=== PATIENT | female | born 1935 | race Caucasian/White ===

== ENCOUNTER 2019-02-05 18:38 | Inpatient (IN) | payer MEDICARE, OTHER ==
[2019-02-05] MEDS ORDERED: Sodium Chloride 0.9% 1,000 ML IV ONE (19:08)
[2019-02-05 19:20] LABS: BASO % 0.6 % (0.0-2.0); EOS # 0.5 K/uL (0.0-0.7); EOS % 7.2 % (0.0-4.0); HEMOGLOBIN 11.9 g/dL (11.0-16.0); LYMPH # 2.5 K/uL (1.0-4.3); LYMPH % 35.9 % (20.0-40.0); MEAN CELL VOLUME 101.9 fL (81.0-99.0); MEAN CORPUSCULAR HEMOGLOBIN 34.1 pg (27.0-31.0); MEAN CORPUSCULAR HGB CONC 33.5 g/dL (33.0-37.0); MONO # 0.5 K/uL (0.0-0.8); MONO % 7.7 % (0.0-10.0); NEUT # 3.4 K/uL (1.8-7.0); NEUT % 48.6 % (50.0-75.0); RBC 3.49 Mil/uL (3.80-5.20); RED CELL DISTRIBUTION WIDTH 13.2 % (11.5-14.5)
[2019-02-05 19:34] LABS: CALCIUM 11.2 mg/dl (8.6-10.4)
[2019-02-05 19:44] LABS: ALB/GLOB RATIO 1.6 (1.0-2.1); ALBUMIN 4.1 g/dL (3.5-5.0)
--- NOTE | 2019-02-05 19:50 | C.PDOC ---
History Of Present Illness 83 y/o female pt presents to the ER c/o diarrhea x2 days. Pt reports she has had approximately x5 episodes of watery stool per day. She denies recent travels, recent intake of abx, no blood in stool or abdominal pain. Time Seen by Provider: 02/05/19 19:05 Chief Complaint (Nursing): GI Problem History Per: Patient History/Exam Limitations: no limitations Onset/Duration Of Symptoms: Days (x14) Current Symptoms Are (Timing): Still Present Past Medical History Reviewed: Historical Data, Nursing Documentation, Vital Signs Vital Signs: Last Vital Signs Temp 97.5 F L 02/05/19 18:43 Pulse 78 02/05/19 18:43 Resp 18 02/05/19 18:43 BP 198/78 H 02/05/19 18:43 Pulse Ox 99 02/05/19 18:43 - Medical History PMH: Dementia, HTN Family History: States: No Known Family Hx - Social History Hx Tobacco Use: No Hx Alcohol Use: No Hx Substance Use: No - Immunization History Hx Tetanus Toxoid Vaccination: No Hx Influenza Vaccination: No Hx Pneumococcal Vaccination: No Review Of Systems Except As Marked, All Systems Reviewed And Found Negative. Gastrointestinal: Positive for: Diarrhea Physical Exam - Physical Exam Appears: Non-toxic, No Acute Distress Skin: Normal Color, Warm, Dry Head: Atraumatic, Normacephalic Eye(s): bilateral: Normal Inspection, PERRL, EOMI Nose: Normal Oral Mucosa: Moist Chest: Symmetrical Cardiovascular: Rhythm Regular, No Murmur Respiratory: Normal Breath Sounds, No Rales, No Rhonchi, No Wheezing Gastrointestinal/Abdominal: Normal Exam, Soft, No Tenderness Extremity: Normal ROM Extremity: Bilateral: Atraumatic, Normal Color And Temperature Neurological/Psych: Oriented x3, Normal Speech ED Course And Treatment - Laboratory Results Result Diagrams: 02/05/19 19:13 02/05/19 19:13 Lab Results: Total Bilirubin 0.7 mg/dL (0.2-1.3) 02/05/19 19:13 AST 34 U/L (14-36) 02/05/19 19:13 ALT 15 U/L (9-52) 02/05/19 19:13 Alkaline Phosphatase 57 U/L (38-126) 02/05/19 19:13 Total Protein 6.7 g/dL (6.3-8.3) 02/05/19 19:13 Albumin 4.1 g/dL (3.5-5.0) 02/05/19 19:13 Globulin 2.6 gm/dL (2.2-3.9) 02/05/19 19:13 Albumin/Globulin Ratio 1.6 (1.0-2.1) 02/05/19 19:13 Lipase 1857 U/L (23-300) H 02/05/19 19:13 O2 Sat by Pulse Oximetry: 99 (RA) Pulse Ox Interpretation: Normal Medical Decision Making Medical Decision Making: Assessment: diarrhea plans: -- chem labs -- blood work -- stool cx -- obstructive series XR -- Iv fluids case discussed with Dr. Elliott and will admit to medical surgical floor Disposition Discussed With : Santhosh Elliott Counseled Patient/Family Regarding: Studies Performed, Diagnosis - Disposition Disposition: HOSPITALIZED Disposition Time: 20:50 Condition: FAIR - Clinical Impression Clinical Impression: Pancreatitis - Scribe Statement The provider has reviewed the documentation as recorded by the Yaneli Arreola Do Provider Attestation: All medical record entries made by the Nitinibe were at my direction and personally dictated by me. I have reviewed the chart and agree that the record accurately reflects my personal performance of the history, physical exam, medical decision making, and the department course for this patient. I have also personally directed, reviewed, and agree with the discharge instructions and disposition.
[2019-02-05] MEDS ORDERED: Iohexol 350mg/ml 100 ML ONE (21:03)
[2019-02-05 23:03] LABS: SQUAMOUS EPITHIAL < 1 /hpf (0-5); URINE BACTERIA RARE (<OCC); URINE BILIRUBIN NEGATIVE (NEGATIVE); URINE BLOOD NEGATIVE (NEGATIVE); URINE CLARITY Clear (Clear); URINE COLOR Straw (YELLOW); URINE GLUCOSE (UA) NORMAL (Normal); URINE LEUKOCYTE ESTERASE 2+ Leu/uL (Negative); URINE PROTEIN NEGATIVE (NEGATIVE); URINE UROBILINOGEN NORMAL mg/dL (0.2-1.0)
[2019-02-06] MEDS ORDERED: Sodium Chloride 0.9% 1,000 ML IV ONE (09:13)
[2019-02-06] MEDS ORDERED: Dextrose 5%/0.45% NS 1,000 ML IV SCH (09:30)
--- NOTE | 2019-02-06 10:12 | CT ---
Date of service: 02/05/2019 PROCEDURE: CT Abdomen and Pelvis with contrast HISTORY: abd. pain COMPARISON: None. TECHNIQUE: Contrast dose: 100 mL of Omnipaque 350 intravenously. Axial and reformatted coronal and sagittal CT images of the abdomen and pelvis were obtained after IV contrast administration. Radiation dose: Total exam DLP = 385.85 mGy-cm. This CT exam was performed using one or more of the following dose reduction techniques: Automated exposure control, adjustment of the mA and/or kV according to patient size, and/or use of iterative reconstruction technique. FINDINGS: LOWER THORAX: There is a trace right pleural effusion. The heart is enlarged. Mild pulmonary vascular congestion is noted. LIVER: Clhpvo-ep-jzkaogefcj enlarged liver noted. Low-attenuation lesion noted at the anterior aspect of the liver measures 7 millimeter likely benign. GALLBLADDER AND BILE DUCTS: Large gallstones are noted. No definite CT evidence of acute cholecystitis. The common bile duct is slightly dilated. PANCREAS: Unremarkable. No gross lesion or ductal dilatation. SPLEEN: Unremarkable. ADRENALS: There is 0.8 centimeter nodule at the left adrenal gland. The right adrenal gland is grossly unremarkable. KIDNEYS AND URETERS: Mild thickening in the right kidney collecting system is noted. Correlate clinically for UTI. The kidneys enhance symmetrically. No evidence of significant hydronephrosis. VASCULATURE: No aortic aneurysm. Diffuse atherosclerotic calcification is noted in the abdominal aorta and iliac arteries. BOWEL: There is diffuse gastric and small bowel wall thickening suspicious for gastroenteritis. Colonic diverticulosis are noted. No obstruction. No gross mural thickening. APPENDIX: No CT evidence of appendicitis. PERITONEUM: Unremarkable. No free fluid. No free air. LYMPH NODES: Unremarkable. No enlarged lymph nodes. BLADDER: Mild urinary bladder wall thickening is noted. REPRODUCTIVE: Unremarkable. BONES: No acute fracture. Grade 1 anterior spondylolisthesis of L4 on L5 and L5 relative to S1 is noted. Moderate degenerative changes are noted. OTHER FINDINGS: None. IMPRESSION: Suspicious for gastroenteritis. Mild thickening of the right kidney collecting system noted. Correlate clinically for UTI. Large gallstones without CT evidence of acute cholecystitis. Preliminary report was submitted by [facility] Radiology contains concordant findings.
[2019-02-06 12:01] LABS: BASO % 0.7 % (0.0-2.0); EOS # 0.5 K/uL (0.0-0.7); EOS % 8.7 % (0.0-4.0); HEMOGLOBIN 12.3 g/dL (11.0-16.0); LYMPH # 2.4 K/uL (1.0-4.3); LYMPH % 41.2 % (20.0-40.0); MEAN CELL VOLUME 100.5 fL (81.0-99.0); MEAN CORPUSCULAR HEMOGLOBIN 34.2 pg (27.0-31.0); MEAN PLATELET VOLUME 9.5 fL (7.2-11.7); MONO # 0.5 K/uL (0.0-0.8); MONO % 8.8 % (0.0-10.0); NEUT # 2.4 K/uL (1.8-7.0); NEUT % 40.6 % (50.0-75.0); NRBC % 0.1 % (0.0-2.0); RBC 3.6 Mil/uL (3.80-5.20); RED CELL DISTRIBUTION WIDTH 13.1 % (11.5-14.5); WHITE BLOOD COUNT 5.9 K/uL (4.8-10.8)
--- NOTE | 2019-02-06 12:06 | RAD ---
Date of service: 02/05/2019 PROCEDURE: Radiographs of the chest and abdomen (obstructive series) HISTORY: abd pain COMPARISON: No prior. TECHNIQUE: AP radiograph of the chest, with upright and supine radiographs of the abdomen. 3 views obtained. FINDINGS: CHEST: Lungs: No evidence of acute pulmonary disease Cardiovascular: Normal size heart. No pulmonary vascular congestion. No aortic atherosclerotic calcification present Pleura: No pleural fluid. No pneumothorax. Other findings: None. ABDOMEN AND PELVIS: Bowel: Mild constipation, otherwise unremarkable bowel gas pattern. No evidence of mechanical obstruction. Free air: None. Bones: Unremarkable. Other findings: There is a vascular stent in the left upper pelvis. IMPRESSION: Mild constipation, otherwise radiographs of chest and abdomen. No evidence of mechanical bowel obstruction.
[2019-02-06 12:21] LABS: ALB/GLOB RATIO 1.6 (1.0-2.1); ALBUMIN 4.1 g/dL (3.5-5.0); ALT/SGPT 12 U/L (9-52); AMYLASE 110 U/L (30-110); AST/SGOT 24 U/L (14-36); BLOOD UREA NITROGEN 14 mg/dL (7-17); CALCIUM 11.3 mg/dl (8.6-10.4); GFR NON-AFRICAN AMERICAN > 60; LIPASE 173 U/L (23-300)
[2019-02-07 08:52] LABS: BASO % 0.6 % (0.0-2.0); EOS # 0.5 K/uL (0.0-0.7); HEMOGLOBIN 13.4 g/dL (11.0-16.0); LYMPH # 2.4 K/uL (1.0-4.3); LYMPH % 34.3 % (20.0-40.0); MEAN CELL VOLUME 102.2 fL (81.0-99.0); MEAN CORPUSCULAR HEMOGLOBIN 34.6 pg (27.0-31.0); MEAN CORPUSCULAR HGB CONC 33.8 g/dL (33.0-37.0); MEAN PLATELET VOLUME 9.8 fL (7.2-11.7); MONO # 0.7 K/uL (0.0-0.8); MONO % 10.2 % (0.0-10.0); NEUT # 3.3 K/uL (1.8-7.0); NEUT % 47.9 % (50.0-75.0); NRBC % 0.1 % (0.0-2.0); RBC 3.86 Mil/uL (3.80-5.20); RED CELL DISTRIBUTION WIDTH 13.1 % (11.5-14.5)
[2019-02-07 09:18] LABS: ALB/GLOB RATIO 1.6 (1.0-2.1); ALBUMIN 4.1 g/dL (3.5-5.0); ALT/SGPT < 6 U/L (9-52); AST/SGOT 53 U/L (14-36); BLOOD UREA NITROGEN 13 mg/dL (7-17); GFR NON-AFRICAN AMERICAN 48
[2019-02-07] MEDS: metroNIDAZOLE IV 500 mg/100 ml 500 MG/100 ML BAG IVPB SCH ×2 (09:39→15:42)
--- NOTE | 2019-02-07 10:20 | PN ---
DATE: 02/06/2019 LOCATION: 358, bed B. SUBJECTIVE: This is an 83-year-old female seen and examined in rounds initially for GI consultation on 02/06/2019 as requested by the admitting medical staff in the presence of some family members, reexamined again today with complaint of abdominal pain, mild abdominal distention with diarrhea, but no reported chills or fever, chest pain or palpitations, significant shortness of breath, somewhat tolerated liquid diet with loss of appetite and the reported weight loss by the family before. The entire chart is reviewed including but not limited to most recent lab and radiology study results, current and the previous medication list and today's lab result showed blood glucose level of 105. Rest of the lab results still pending. The official report of abdomen and pelvic CAT scan is seen. PHYSICAL EXAMINATION: GENERAL: An 83-year-old female. VITAL SIGNS: Afebrile with pulse of 74, respiratory rate 20 to 22, blood pressure 162/78. HEENT: Showed pale dry oral mucous membrane. Nonicteric sclerae. LUNGS: Few scattered crepitation. Decreased air entry at bases. HEART: Positive S1 and S2. ABDOMEN: Soft with mild distention, mild generalized tenderness. No mass or organomegaly. No rebound tenderness or guarding but generalized abdominal tenderness. RECTAL: The patient refused. EXTREMITIES: Without significant clubbing, cyanosis or edema. NEUROLOGIC: No reported new neurological deficits, sensory or motor and no reported new focal deficits. IMPRESSION: 1. Diarrhea of unclear etiology, infectious versus mechanical. 2. Known history of hypertension. 3. Recent alteration of the blood glucose level, of unclear etiology. 4. Rule out occult lower gastrointestinal tract malignancy. It has to be kept in mind that it is not clear if the patient had any recent colonoscopy or not and if she did, how long, despite family denied her having colonoscopy recently. SUGGESTIONS: 1. Agree with your plan. 2. Add Flagyl IV. 3. Cancer markers. 4. No milk or dairy product and no seeds in the meantime. 5. Rehydration. 6. Repeat CBC and SMA-18. We will add lipase and amylase level. 7. Endoscopic evaluation of the lower GI tract if the patient's symptoms persists, otherwise close observation to follow. Oren Escoto MD [facility] # [id number]
[2019-02-07 11:32] LABS: INR 1.1; PROTHROMBIN TIME 11.6 SECONDS (9.7-12.2)
[2019-02-07] MEDS ORDERED: Folic Acid 1 MG, Thiamine 100 MG, Multivitamin (MVI) 10 ML in Dextrose 5% In Water 1,00... IV SCH (23:15)
--- NOTE | 2019-02-07 23:24 | CP.PCM.HP ---
Present on Admission - Present on Admission Any Indicators Present on Admission: No Past Patient History - Past Medical History & Family History Past Medical History?: Yes - Past Social History Smoking Status: Never Smoked - CARDIAC Hx Hypercholesterolemia: Yes Hx Hypertension: Yes - NEUROLOGICAL Hx Dementia: Yes - ENDOCRINE/METABOLIC Hx Diabetes Mellitus Type 2: Yes - MUSCULOSKELETAL/RHEUMATOLOGICAL Hx Arthritis: Yes - PSYCHIATRIC Hx Depression: Yes Hx Substance Use: No - SURGICAL HISTORY Hx Cardiac Catheterization: Yes - ANESTHESIA Hx Anesthesia: Yes Hx Anesthesia Reactions: No Hx Malignant Hyperthermia: No Has any member of the family had a problem w/ anesthesia?: No Meds Allergies/Adverse Reactions: Allergies Allergy/AdvReac Type Severity Reaction Status Date / Time No Known Allergies Allergy Verified 02/05/19 18:44 Results - Vital Signs Recent Vital Signs: Last Vital Signs Temp 97.4 F L 02/07/19 15:11 Pulse 77 02/07/19 15:11 Resp 20 02/07/19 15:11 BP 154/73 H 02/07/19 15:11 Pulse Ox 96 02/07/19 15:11 - Labs Result Diagrams: 02/07/19 08:15 02/07/19 08:15 Labs: Laboratory Results - last 24 hr 02/07/19 02/07/19 02/07/19 07:26 08:15 08:15 WBC 7.0 RBC 3.86 Hgb 13.4 Hct 39.5 MCV 102.2 H MCH 34.6 H MCHC 33.8 RDW 13.1 Plt Count 198 MPV 9.8 Neut % (Auto) 47.9 L Lymph % (Auto) 34.3 [place] % (Auto) 10.2 H Eos % (Auto) 7.0 H Baso % (Auto) 0.6 Neut # (Auto) 3.3 Lymph # (Auto) 2.4 [place] # (Auto) 0.7 Eos # (Auto) 0.5 Baso # (Auto) 0.0 PT INR APTT Sodium 137 Potassium 4.9 Chloride 109 H Carbon Dioxide 20 L Anion Gap 14 BUN 13 Creatinine 1.1 Est GFR ( Amer) 58 Est GFR (Non-Af Amer) 48 POC Glucose (mg/dL) 105 Random Glucose 86 Calcium 11.0 H Total Bilirubin 1.1 AST 53 H D ALT < 6 L D Alkaline Phosphatase 67 Total Protein 6.7 Albumin 4.1 Globulin 2.6 Albumin/Globulin Ratio 1.6 Carcinoembryonic Ag CA 125 Antigen 02/07/19 02/07/19 02/07/19 10:50 10:50 11:07 WBC RBC Hgb Hct MCV MCH MCHC RDW Plt Count MPV Neut % (Auto) Lymph % (Auto) [place] % (Auto) Eos % (Auto) Baso % (Auto) Neut # (Auto) Lymph # (Auto) [place] # (Auto) Eos # (Auto) Baso # (Auto) PT 11.6 INR 1.1 APTT 38 H Sodium Potassium Chloride Carbon Dioxide Anion Gap BUN Creatinine Est GFR ( Amer) Est GFR (Non-Af Amer) POC Glucose (mg/dL) 144 H Random Glucose Calcium Total Bilirubin AST ALT Alkaline Phosphatase Total Protein Albumin Globulin Albumin/Globulin Ratio Carcinoembryonic Ag 2.2 CA 125 Antigen < 5.5 02/07/19 02/07/19 16:19 20:53 WBC RBC Hgb Hct MCV MCH MCHC RDW Plt Count MPV Neut % (Auto) Lymph % (Auto) [place] % (Auto) Eos % (Auto) Baso % (Auto) Neut # (Auto) Lymph # (Auto) [place] # (Auto) Eos # (Auto) Baso # (Auto) PT INR APTT Sodium Potassium Chloride Carbon Dioxide Anion Gap BUN Creatinine Est GFR ( Amer) Est GFR (Non-Af Amer) POC Glucose (mg/dL) 150 H 195 H Random Glucose Calcium Total Bilirubin AST ALT Alkaline Phosphatase Total Protein Albumin Globulin Albumin/Globulin Ratio Carcinoembryonic Ag CA 125 Antigen
[2019-02-08] MEDS: metroNIDAZOLE IV 500 mg/100 ml 500 MG/100 ML BAG IVPB SCH ×3 (00:35→17:16)
--- NOTE | 2019-02-08 05:50 | HP ---
CHIEF COMPLAINT: Diarrhea for two days. HISTORY OF PRESENT ILLNESS: This is an 83-year-old female with history of hypertension, dementia and diabetes. The patient is a poor historian. She is shaking. She has history of drinking alcohol. According to the patient, she drinks once a day; quantity is unknown and is nonspecific. The patient has diarrhea for last two days. According to her, today she is having five bowel movements. She denies any history of travel outside the country. She denies any nausea. She denies any vomiting. She denies any antibiotics recently. She denies any cough or sore throat. She has generalized weakness, tiredness, anorexia, malaise and fatigue. She denies any polyuria, polydipsia or polyphagia. She denies any history of hematuria or pyuria. She denies any sneezing, itchy eyes, or itchy nose. She denies any joint pain or hip pain. At the moment, she denies any abdominal pain. There is no history of skin rash. There is no history of any vertigo, numbness, tingling or paresthesias. PAST MEDICAL HISTORY: Hypertension, dementia, diabetes. SOCIAL HISTORY: She is a nonsmoker. She drinks. FAMILY HISTORY: Negative for GI malignancy. CURRENT MEDICATIONS: She is on clonidine, Norvasc, Cardura, Remeron, labetalol, Brilinta, Lipitor, Glucophage, Benicar, and Imdur. PHYSICAL EXAMINATION: GENERAL: An elderly female who is anxious and tremulous with no apparent distress. VITAL SIGNS: Blood pressure 154/76, pulse 77, respiratory rate 20, and temperature 97.4. SKIN: Dry senile turgor. No bruises. No purpura. No petechiae. No ecchymosis. HEENT: Atraumatic and normocephalic. Negative pallor. Negative jaundice. Extraocular movements are intact. NECK: Supple. Flat neck veins. No JVD. CHEST WALL: Bilateral symmetrical expansion. LUNGS: Clear. No rales. No rhonchi. CARDIOVASCULAR SYSTEM: S1 and S2 are regular. No heave. No thrill. ABDOMEN: Soft and nontender. Bowel sounds are present. RECTAL: Refused. PELVIC: Refused. EXTREMITIES: No clubbing, cyanosis or edema. CENTRAL NERVOUS SYSTEMS: Awake, alert. She is anxious. She is tremulous. ASSESSMENT: 1. Gastroenteritis. 2. Rule out dehydration. 3. Hypertension. 4. Diabetes. PLAN: Admit. Detailed orders have been written. The patient has been seen and examined. Santhosh Elliott MD
[2019-02-08 06:42] LABS: ALB/GLOB RATIO 1.6 (1.0-2.1); ALBUMIN 3.6 g/dL (3.5-5.0); ALT/SGPT 14 U/L (9-52); AMYLASE 106 U/L (30-110); AST/SGOT 20 U/L (14-36); BLOOD UREA NITROGEN 12 mg/dL (7-17); CALCIUM 10.5 mg/dl (8.6-10.4); GFR NON-AFRICAN AMERICAN 53; HEMOGLOBIN 11.5 g/dL (11.0-16.0); LIPASE 141 U/L (23-300); MEAN CELL VOLUME 101.4 fL (81.0-99.0); MEAN CORPUSCULAR HEMOGLOBIN 34.4 pg (27.0-31.0); MEAN CORPUSCULAR HGB CONC 33.9 g/dL (33.0-37.0); MEAN PLATELET VOLUME 9.4 fL (7.2-11.7); RBC 3.35 Mil/uL (3.80-5.20); RED CELL DISTRIBUTION WIDTH 12.8 % (11.5-14.5); WHITE BLOOD COUNT 5.4 K/uL (4.8-10.8)
[2019-02-08] MEDS: Folic Acid 1 MG, Thiamine 100 MG, Multivitamin (MVI) 10 ML in Dextrose 5% In Water 1,00... IV SCH (12:00)
--- NOTE | 2019-02-08 13:19 | NM ---
Date of service: 02/08/2019 PROCEDURE: Nuclear Medicine Hepatobiliary Scan HISTORY: cholecystitis COMPARISON: 02/05/2019. CT abdomen and pelvis. TECHNIQUE: 5.8 mCi of technetium 99m Mebrofenin was administered intravenously. Planar images of the abdomen were obtained at 5 min intervals to 60 mins. Delayed images were also obtained. FINDINGS: LIVER: Timely and homogenous uptake. COMMON BILE DUCT: identified at 10 mins. GALLBLADDER: Visible at 03:00 hours. SMALL BOWEL: Identified at 20 mins. IMPRESSION: Normal Hepatobiliary Scan. The cystic duct is patent.
--- NOTE | 2019-02-08 16:03 | PN ---
DATE: 02/08/2019 LOCATION: 358, bed B. SUBJECTIVE: This is an 83-year-old female seen and examined initially for GI consultation previously on 02/06/2019, reexamined again today without reported significant clinical changes or reported active bleeding. The entire chart is reviewed including but not limited to the most recent lab and radiology study results, current and the previous medication list, current and the previous medical events, the patient admitted alcohol intake in excess recently, has been having diarrhea on and off, but much more few days prior to her admission with recurrent abdominal pain and distention. LABORATORY DATA: Most recent lab results showed normal CBC with blood glucose level 122 with low albumin 5.6, calcium is . Most recently done abdominal and pelvic CAT scan post admission, official report is seen, positive for gallbladder stone. PHYSICAL EXAMINATION: GENERAL: An 83-year-old female. VITAL SIGNS: Afebrile with pulse of 72, respiratory rate 20 to 22, blood pressure 144/68. HEENT: Showed pale dry mucoid membrane. Nonicteric sclerae. LUNGS: Few scattered crepitation. Decreased air entry at bases. HEART: Positive S1 and S2. ABDOMEN: Soft with mild generalized tenderness. No mass or organomegaly. No rebound tenderness or guarding. Abdominal distention is still noticed with midepigastric, midabdominal line and right lower quadrant tenderness. EXTREMITIES: Without significant clubbing, cyanosis or edema. NEUROLOGIC: No reported new neurological deficits, sensory or motor. No reported new focal deficits. IMPRESSION: 1. Diarrhea, infectious versus mechanical, rule out diabetic diarrhea. 2. Known history of hypertension. 3. Alcoholism by history. 4. Re-exacerbation of peptic ulcer disease. 5. Diabetes mellitus by history. SUGGESTIONS: 1. Continue current management. 2. Awaiting result of cancer markers; however, the patient is to be scheduled for colonoscopy when she is more stable clinically, and consent to be discussed with the legal guardian her son. 3. Further recommendations to follow. Oren Escoto MD
--- NOTE | 2019-02-08 21:58 | CP.PCM.PN ---
Subjective - Date & Time of Evaluation Date of Evaluation: 02/08/19 Time of Evaluation: 07:00 - Subjective Subjective: dictated Objective - Vital Signs/Intake and Output Vital Signs (last 24 hours): Temp Pulse Resp BP Pulse Ox 97.9 F 74 20 150/71 98 02/07/19 23:57 02/07/19 23:57 02/07/19 23:57 02/07/19 23:57 02/07/19 23:57 Intake and Output: 02/08/19 02/09/19 18:59 06:59 Intake Total 880 Balance 880 - Medications Medications: Current Medications Amlodipine Besylate (Norvasc) 10 mg PO DAILY [facility] Last Admin: 02/08/19 10:32 Dose: 10 mg Metronidazole (Flagyl) 500 mg in 100 mls @ 100 mls/hr IVPB Q8H [facility]; Protocol Last Admin: 02/08/19 17:16 Dose: 100 mls/hr Folic Acid 1 mg/ Thiamine HCl 100 mg/ Multivitamins/Vitamin C 10 ml/ Dextrose 1,011.2 mls @ 80 mls/hr IV Q24H [facility] Last Admin: 02/08/19 12:00 Dose: 80 mls/hr Labetalol HCl (Trandate) 200 mg PO DAILY [facility] Last Admin: 02/08/19 10:32 Dose: 200 mg Mirtazapine (Remeron) 15 mg PO HS [facility] Last Admin: 02/08/19 21:04 Dose: 15 mg Pneumococcal Polyvalent Vaccine (Pneumovax 23 Vaccine) 0.5 ml SC .ONCE ONE Stop: 02/09/19 10:01 Rosuvastatin Calcium (Crestor) 20 mg PO HS [facility] Last Admin: 02/08/19 21:04 Dose: 20 mg Ticagrelor (Brilinta) 90 mg PO BID [facility] Last Admin: 02/08/19 17:17 Dose: 90 mg - Labs Labs: 02/08/19 06:24 02/08/19 06:24 PT 11.6 SECONDS (9.7-12.2) 02/07/19 10:50 INR 1.1 02/07/19 10:50 APTT 38 SECONDS (21-34) H 02/07/19 10:50
[2019-02-09] MEDS: metroNIDAZOLE IV 500 mg/100 ml 500 MG/100 ML BAG IVPB SCH ×2 (00:30→09:29)
--- NOTE | 2019-02-09 04:01 | PN ---
DATE: 02/08/2019 SUBJECTIVE: The patient is feeling better. No nausea or vomiting and she denies shaking. She feels better. PHYSICAL EXAMINATION: VITAL SIGNS: Blood pressure is 150/71, pulse 74, respiratory rate 20, temperature 97.9. LUNGS: Clear. No rales. No rhonchi. CARDIOVASCULAR SYSTEM: S1, S2. Regular. ABDOMEN: Soft, nontender. Bowel sounds are positive. ASSESSMENT: 1. Pancreatitis, resolved. 2. Dehydration. 3. Hypertension. 4. Alcoholism. PLAN: Monitor the patient. aSnthosh Elliott MD
[2019-02-09 08:02] VITALS: RESP 20; O2SAT 98
--- NOTE | 2019-02-09 08:26 | PN ---
DATE: 02/08/2019 LOCATION: 358, bed B. SUBJECTIVE: This is an 83-year-old female, seen and examined early in rounds without significant clinical changes but with intermittent period of abdominal pain. The entire chart is reviewed including but not limited to the most recent lab results, and the patient's most recent blood glucose level was 145, but normal liver function test as well as normal CBC. Today's lab results still pending. Official report of HIDA scan is seen indicative of no obstructive phenomena. The patient somewhat tolerated oral intake. Denied any actual chest pain, palpitation or evidence of active GI bleeding, seen with a [place] spoken systems protection technician staff. PHYSICAL EXAMINATION: GENERAL: An 83-year-old female. He was complaining still of intermittent period of diarrhea, but less than before. VITAL SIGNS: Afebrile with pulse of 78, respiratory 20-22, blood pressure 144/74. HEENT: Show pale dry oral mucous membrane. Nonicteric sclerae. LUNGS: Few scattered crepitation. Decreased air entry at bases. HEART: Positive S1 and S2. ABDOMEN: Soft. Bowel sounds are present with mild generalized tenderness and mild distention. No mass or organomegaly no rebound tenderness or guarding. EXTREMITIES: With mild lower extremity edematous changes. No clubbing or cyanosis. NEUROLOGIC: No reported new neurological deficits, sensory or motor. IMPRESSION: 1. Diarrhea, infectious versus mechanical. The possibility of diabetic diarrhea was raised. 2. Gallbladder stone without clear evidence of acute cholecystitis. 3. Re-exacerbation of peptic ulcer disease. 4. Poorly controlled hyperglycemia. SUGGESTIONS: 1. Agree with your plan. 2. Repeat stool for C. diff and culture and sensitivity. 3. The patient may need colonoscopy if it was not done before keeping in mind her age group and her clinical presentation of diarrhea, that to be discussed with the primary MD. 4. Further recommendation to follow. Oren Escoto MD
[2019-02-09] MEDS ORDERED: Pneumococcal 23-Valent Vaccine SC ONE (10:00)
[2019-02-09] MEDS: Folic Acid 1 MG, Thiamine 100 MG, Multivitamin (MVI) 10 ML in Dextrose 5% In Water 1,00... IV SCH (12:12)
[2019-02-09 16:04] VITALS: BP 161/73; PULSE 79; TEMP 97.3
--- NOTE | 2019-02-09 16:51 | CP.PCM.PN ---
Subjective - Date & Time of Evaluation Date of Evaluation: 02/09/19 Time of Evaluation: 11:00 - Subjective Subjective: alert, awake, no sob or chest pains, NAD. Objective - Vital Signs/Intake and Output Vital Signs (last 24 hours): Temp Pulse Resp BP Pulse Ox 97.3 F L 79 20 161/73 H 98 02/09/19 16:00 02/09/19 16:00 02/09/19 16:00 02/09/19 16:00 02/09/19 16:00 Intake and Output: 02/09/19 02/09/19 06:59 18:59 Intake Total 1560 580 Balance 1560 580 - Medications Medications: Current Medications Amlodipine Besylate (Norvasc) 10 mg PO DAILY [facility] Last Admin: 02/09/19 09:31 Dose: 10 mg Metronidazole (Flagyl) 500 mg in 100 mls @ 100 mls/hr IVPB Q8H [facility]; Protocol Last Admin: 02/09/19 09:29 Dose: 100 mls/hr Folic Acid 1 mg/ Thiamine HCl 100 mg/ Multivitamins/Vitamin C 10 ml/ Dextrose 1,011.2 mls @ 80 mls/hr IV Q24H [facility] Last Admin: 02/09/19 12:12 Dose: 80 mls/hr Labetalol HCl (Trandate) 200 mg PO DAILY [facility] Last Admin: 02/09/19 09:32 Dose: 200 mg Mirtazapine (Remeron) 15 mg PO HS [facility] Last Admin: 02/08/19 21:04 Dose: 15 mg Rosuvastatin Calcium (Crestor) 20 mg PO [facility] Last Admin: 02/08/19 21:04 Dose: 20 mg Ticagrelor (Brilinta) 90 mg PO BID [facility] Last Admin: 02/09/19 09:29 Dose: 90 mg - Labs Labs: 02/08/19 06:24 02/08/19 06:24 PT 11.6 SECONDS (9.7-12.2) 02/07/19 10:50 INR 1.1 02/07/19 10:50 APTT 38 SECONDS (21-34) H 02/07/19 10:50 Assessment and Plan - Assessment and Plan (Free Text) Assessment: Patient admitted with diarrhea, pancreatitis, improving well, seen and examined. No abdominal pain awake, alert. Discussed with DR Elliott, plan to discharge home, advised to follow up in the office in 1 week. Continue with flagyl x5 days more.
--- NOTE | 2019-02-09 21:25 | CP.PCM.DIS ---
Provider - Provider Date of Admission: 02/05/19 22:49 Attending physician: Santhosh Elliott MD Consults: 02/06/19 13:26 Gastroenterology Consult Routine Comment: PANCREATITIS Consulting Provider: Oren Ames Consulting Physician: Oren Ames Reason for Consult: PANCREATITIS 02/08/19 10:00 Case Management Referral Routine Comment: Physician Instructions: Reason For Exam: discharge planning- receives home care Reason for Referral: Discharge Planning Time Spent in preparation of Discharge (in minutes): 30 Hospital Course - Lab Results Lab Results: Most Recent Lab Values WBC 5.4 K/uL (4.8-10.8) 02/08/19 06:24 RBC 3.35 Mil/uL (3.80-5.20) L 02/08/19 06:24 Hgb 11.5 g/dL (11.0-16.0) 02/08/19 06:24 Hct 34.0 % (34.0-47.0) 02/08/19 06:24 MCV 101.4 fL (81.0-99.0) H 02/08/19 06:24 MCH 34.4 pg (27.0-31.0) H 02/08/19 06:24 MCHC 33.9 g/dL (33.0-37.0) 02/08/19 06:24 RDW 12.8 % (11.5-14.5) 02/08/19 06:24 Plt Count 203 K/uL (130-400) 02/08/19 06:24 MPV 9.4 fL (7.2-11.7) 02/08/19 06:24 Neut % (Auto) 47.9 % (50.0-75.0) L 02/07/19 08:15 Lymph % (Auto) 34.3 % (20.0-40.0) 02/07/19 08:15 [place] % (Auto) 10.2 % (0.0-10.0) H 02/07/19 08:15 Eos % (Auto) 7.0 % (0.0-4.0) H 02/07/19 08:15 Baso % (Auto) 0.6 % (0.0-2.0) 02/07/19 08:15 Neut # (Auto) 3.3 K/uL (1.8-7.0) 02/07/19 08:15 Lymph # (Auto) 2.4 K/uL (1.0-4.3) 02/07/19 08:15 [place] # (Auto) 0.7 K/uL (0.0-0.8) 02/07/19 08:15 Eos # (Auto) 0.5 K/uL (0.0-0.7) 02/07/19 08:15 Baso # (Auto) 0.0 K/uL (0.0-0.2) 02/07/19 08:15 PT 11.6 SECONDS (9.7-12.2) 02/07/19 10:50 INR 1.1 02/07/19 10:50 APTT 38 SECONDS (21-34) H 02/07/19 10:50 Sodium 138 mmol/L (132-148) 02/08/19 06:24 Potassium 4.3 mmol/L (3.6-5.2) 02/08/19 06:24 Chloride 108 mmol/L (98-107) H 02/08/19 06:24 Carbon Dioxide 24 mmol/L (22-30) 02/08/19 06:24 Anion Gap 11 (10-20) 02/08/19 06:24 BUN 12 mg/dL (7-17) 02/08/19 06:24 Creatinine 1.0 mg/dL (0.7-1.2) 02/08/19 06:24 Est GFR ( Amer) > 60 02/08/19 06:24 Est GFR (Non-Af Amer) 53 02/08/19 06:24 POC Glucose (mg/dL) 134 mg/dL (65-110) H 02/09/19 11:37 Random Glucose 113 mg/dL (65-105) H D 02/08/19 06:24 Calcium 10.5 mg/dl (8.6-10.4) H 02/08/19 06:24 Phosphorus 3.4 mg/dL (2.5-4.5) 02/08/19 06:24 Magnesium 2.0 mg/dL (1.6-2.3) 02/08/19 06:24 Total Bilirubin 0.5 mg/dL (0.2-1.3) 02/08/19 06:24 AST 20 U/L (14-36) 02/08/19 06:24 ALT 14 U/L (9-52) 02/08/19 06:24 Alkaline Phosphatase 64 U/L (38-126) 02/08/19 06:24 Total Protein 5.9 g/dL (6.3-8.3) L 02/08/19 06:24 Albumin 3.6 g/dL (3.5-5.0) 02/08/19 06:24 Globulin 2.3 gm/dL (2.2-3.9) 02/08/19 06:24 Albumin/Globulin Ratio 1.6 (1.0-2.1) 02/08/19 06:24 Amylase 106 U/L (30-110) 02/08/19 06:24 Lipase 141 U/L (23-300) 02/08/19 06:24 Carcinoembryonic Ag 2.2 ng/mL (0-3.0) 02/07/19 10:50 CA 125 Antigen < 5.5 U/mL (0-35) 02/07/19 10:50 Urine Color Straw (YELLOW) 02/05/19 22:57 Urine Clarity Clear (Clear) 02/05/19 22:57 Urine pH 6.0 (5.0-8.0) 02/05/19 22:57 Ur Specific [place] 1.016 (1.003-1.030) 02/05/19 22:57 Urine Protein Negative mg/dL (NEGATIVE) 02/05/19 22:57 Urine Glucose (UA) Normal mg/dL (Normal) 02/05/19 22:57 Urine Ketones Negative mg/dL (NEGATIVE) 02/05/19 22:57 Urine Blood Negative (NEGATIVE) 02/05/19 22:57 Urine Nitrate Negative (NEGATIVE) 02/05/19 22:57 Urine Bilirubin Negative (NEGATIVE) 02/05/19 22:57 Urine Urobilinogen Normal mg/dL (0.2-1.0) 02/05/19 22:57 Ur Leukocyte Esterase 2+ Guillermina/uL (Negative) H 02/05/19 22:57 Urine WBC (Auto) 17 /hpf (0-5) H 02/05/19 22:57 Urine RBC (Auto) 1 /hpf (0-3) 02/05/19 22:57 Ur Squamous Epith Cells < 1 /hpf (0-5) 02/05/19 22:57 Urine Bacteria Rare (<OCC) 02/05/19 22:57 Discharge Plan - Discharge Medications Prescriptions: Metronidazole [Flagyl] 500 mg PO TID #15 tablet - Follow Up Plan Condition: FAIR Disposition: HOME/ ROUTINE Instructions: Pancreatitis (DC), Metronidazole (Systemic) Additional Instructions: follow up with PMD in 1 week advance diet slowly, avois fatty and spicy foods home care , home PT for generalized weakness flagyl 500mg po tid x5 days Referrals: Santhosh Elliott MD [Staff Provider] -
--- NOTE | 2019-02-10 07:11 | DS ---
DISCHARGE DIAGNOSES: 1. Pancreatitis. 2. Diabetes. 3. Hypertension. 4. Dehydration. 5. Alcoholism. HISTORY OF PRESENT ILLNESS AND HOSPITAL COURSE: This is an 83-year-old female with history of diabetes, hypertension, viral pancreatitis. She came in because of upper abdominal pain, nausea, vomiting, generalized weakness, dizziness, and tremulousness. The patient did admit drinking occasionally. The patient has been compliant with her diet, medication and followup. The patient was admitted to the floor, started on n.p.o., IV fluids, Accu-Chek, sliding scale, and the patient's condition improved. She was started on diet. She tolerated the diet well and is for discharge. CONDITION UPON DISCHARGE: Stable. LABORATORY DATA: WBC 4.4, hemoglobin 11.5, hematocrit 34, platelets 230. Sodium 138, potassium 4.3, chloride 108, bicarb 24, BUN 12, creatinine 1. The patient is improving. Condition is stable upon discharge. Santhosh Elliott MD
== END 2019-02-09 17:57 | disposition home health service (06) | DRG 440 ==
LOC: C.ER 18:38 → C.9E 22:49 → C.3T 23:34
PROVIDERS: ADMIT Internal Medicine; ATTEND Internal Medicine
DX: K85.20 Alcohol induced acute pancreatitis without necrosis or infection (principal); E86.0 Dehydration; F10.20 Alcohol dependence, uncomplicated; E11.65 Type 2 diabetes mellitus with hyperglycemia; K27.9 Peptic ulcer, site unspecified, unspecified as acute or chronic, without hemorrhage or perforation; K80.20 Calculus of gallbladder without cholecystitis without obstruction; I10 Essential (primary) hypertension; F03.90 Unspecified dementia, unspecified severity, without behavioral disturbance, psychotic disturbance, mood disturbance, and anxiety; E78.00 Pure hypercholesterolemia, unspecified